=== PATIENT | female | born 1955 | race Caucasian/White ===

== ENCOUNTER 2020-06-01 09:12 | Day surgery (SDC) | payer OTHER ==
[~2020-06-01 09:12] MED LIST: BUPIVACAINE HCL/PF 0.25% (2.5MG/ML) 10 ML VIAL IJ ONE
[2020-06-01 10:19] VITALS: BMI 24.5
[2020-06-01] MEDS ORDERED: BUPIVACAINE HCL/PF 2.5 MG/ML - 30 ML VIAL IJ ONE (11:05)
[2020-06-01] MEDS ORDERED: MIDAZOLAM HCL 2 MG/2 ML SINGLE DOSE VIAL ONE ×2 (11:24)
[2020-06-01] MEDS ORDERED: PROPOFOL 20 ML ONE ×2 (11:24)
[2020-06-01] MEDS ORDERED: ONDANSETRON 4 MG/2 ML VIAL ONE ×2 (11:24→13:18)
[2020-06-01] MEDS ORDERED: SUCCINYLCHOLINE CHLORIDE 200 MG/10 ML SYRINGE ONE (11:24)
[2020-06-01] MEDS ORDERED: ceFAZolin SODIUM 1 GM VIAL ONE (11:24)
[2020-06-01] MEDS ORDERED: DEXAMETHASONE SOD PHOSPHATE 4 MG/1 ML VIAL ONE (11:24)
[2020-06-01] MEDS ORDERED: LIDOCAINE HCL/PF 2% SDV 5ML VIAL ONE (11:24)
[2020-06-01] MEDS ORDERED: ePHEDrine SULFATE 50 MG/1 ML AMPULE ONE (11:52)
[2020-06-01] MEDS ORDERED: EPHEDRINE SULFATE/0.9% NACL/PF 50 MG/10 ML SYRINGE NR ONE (11:52)
[2020-06-01] MEDS ORDERED: BUPIVACAINE HCL/PF 0.25% (2.5MG/ML) 10 ML VIAL IJ ONE (12:15)
[2020-06-01] MEDS ORDERED: oxyCODONE HCL 5 MG TABLET PO PRN ×2 (12:16)
[2020-06-01] MEDS ORDERED: ONDANSETRON 4 MG/2 ML VIAL IVPUSH PRN (12:16)
[2020-06-01] MEDS ORDERED: LACTATED RINGERS SOLUTION 1,000 ML IV SCH (12:30)
[2020-06-01 14:37] VITALS: BP 124/79; PULSE 63; TEMP 97.9
--- NOTE | 2020-06-01 14:54 | OP ---
DATE OF OPERATION: 06/01/2020 SURGEON: Ed Bran MD CIRCULATION MAN: DEONTE Mendez PREOPERATIVE DIAGNOSES: 1. Right knee mediolateral meniscal tear. 2. Right knee cartilage injury. 3. Right knee synovitis. POSTOPERATIVE DIAGNOSES: 1. Right knee mediolateral meniscal tear. 2. Right knee cartilage injury. 3. Right knee synovitis. PROCEDURE: 1. Right knee arthroscopy with partial meniscectomy of the medial and lateral meniscus. (CPT codes 61547). 2. Right knee arthroscopy with chondroplasty and abrasoplasty. (CPT codes 90057). 3. Right knee arthroscopy synovectomy. (CPT codes, 10737). FINDINGS: 1. Medial meniscus body and posterior horn tear. 2. Lateral meniscus anterior one-third tear. 3. Medial meniscus anterior horn tear. 4. Synovitis of patellofemoral, medial lateral notch area. 6. Diffuse grade 2-3 cartilage changes of the medial femoral condyle 60%. 7. ACL and PCL intact with multiple areas of synovitis along the anterior notch. 8. Diffuse grade 2-3 cartilage injury patella central one-third and 2-4 changes central one-third lateral femoral condyle. 9. Central grade 2-4 cartilage injury of the patella and patellofemoral trochlea, central one-third of the patellofemoral trochlea and central 20% of the patella. PROCEDURE: Informed consent was obtained. The patient came to the operating room, where the lower extremity was prepped and draped in a sterile fashion. A tourniquet was placed on the upper thigh, but not inflated. Using standard arthroscopic technique, a lateral incision and portal was made to allow for introduction of the camera into the suprapatellar bursa. This was then taken to the medial joint line, where under direct visualization, a medial incision and portal was made. Excessive synovium noted in the medial, lateral and patellofemoral and notch area was removed by an upbiter, shaver and Bovie cautery. This was found to bring in inflammatory tissue into the joint surface, a source of pain and dysfunction. Probing of the medial and lateral meniscus found tears, as described in the findings. These were removed with the upbiter and shaver and taken back to a stable rim. Grade 2 to 3 degenerative changes were treated with a chondroplasty, removing all flaking surfaces with low-setting Bovie along the periphery to prevent further flaking. Grade 4 changes, as noted, were treated with an abrasoplasty, creating a bleeding surface at the bone/cartilage interface. Aggressive debridement with shaver/greg created bleeding surface. Micro fracture also done when indicated in findings. All areas of the knee were once again reexamined. The knee was then drained and a single suture was placed in all portals. A sterile dressing was placed and the patient was transferred to the recovery room without complication. The PA listed above was present and assisted at surgery. Their presence was absolutely medically necessary for the completion of the procedure. They helped hold the arthroscopy, pass instruments (and implants when indicated) and the procedure could not have been completed without their assistance. ED BRAN M.D. [id number]
--- NOTE | 2020-06-06 14:54 | PATH ---
Surgical Pathology Report Patient Name: PAULA SAN [facility]. Rec. #: [id number] /Age/Gender: 1955 (Age: 64) / F Account: [id number] Location: [facility] Taken: 06/01/2020 Received: 06/01/2020 Reported: 06/06/2020 Physicians: Ed Lopez M.D. Specimen(s) Received RIGHT KNEE SHAVINGS Clinical History Right knee internal derangement Final Diagnosis RIGHT KNEE SHAVINGS: PORTIONS OF FIBROCARTILAGINOUS AND SYNOVIAL TISSUE WITH FOCAL REACTIVE CHANGE. Electronically Signed Joshua Aguilar M.D. Gross Description Received in formalin, labeled "right knee shavings," is a 5.0 x 4.5 x 0.3 cm. aggregate of dumas-yellow soft tissue fragments. A abrasives sales representative portion is submitted in one cassette. /06/05/2020 saudi06/05/2020
== END 2020-06-01 14:37 | disposition home or self-care (01) ==
LOC: FASU 09:12
PROVIDERS: ATTEND Orthopaedic Surgery
PROC: 0SBC4ZZ Excision of Right Knee Joint, Percutaneous Endoscopic Approach (ICD-10-PCS; 2020-06-01)
PROC: 0SBC4ZZ Excision of Right Knee Joint, Percutaneous Endoscopic Approach (ICD-10-PCS; 2020-06-01)
PROC: 0SBC4ZZ Excision of Right Knee Joint, Percutaneous Endoscopic Approach (ICD-10-PCS; principal; 2020-06-01 11:51)
DX: S83.241A Other tear of medial meniscus, current injury, right knee, initial encounter (principal); S83.281A Other tear of lateral meniscus, current injury, right knee, initial encounter; S83.8X1A Sprain of other specified parts of right knee, initial encounter; M65.861 Other synovitis and tenosynovitis, right lower leg; X58.XXXA Exposure to other specified factors, initial encounter; Y93.9 Activity, unspecified; Y92.9 Unspecified place or not applicable
CPT/HCPCS: 88304-TC; 94760